=== PATIENT | male | born 1970 | race Caucasian/White ===

== ENCOUNTER 2016-11-07 18:04 | Emergency (ER) | payer OTHER ==
--- NOTE | 2016-11-07 18:57 | PROVIDER DOCUMENTATION ---
HPI-Respiratory General - General Source: patient - History of Present Illness-Resp Quality of Pain: reports: aching Severity in ED: reports: mild Onset/Duration: reports: 3 days ago Timing: reports: still present Cough Quality/Degree: reports: mild, dry cough Current Respiratory Medication Therapy: Initiated see nurses note Associated Symptoms: reports: cough, fever/chills, hurts to breathe, nasal congestion, sore throat Similar Symptoms Previously?: No Recently seen or treated by another doctor?: No <Abigail Breen - Last Filed: 11/07/16 18:53> <Markel Jewell - Last Filed: 11/07/16 19:00> - General Chief Complaint: Sore Throat Stated Complaint: COUGH, SORE THROAT, SOB, PEACE, FEVER Time Seen by Provider: 11/07/16 18:50 Home Medications: Home Medication List Medication Instructions Recorded Confirmed Last Taken Type Albuterol Sulfate [Albuterol 2 gm IH Q4-6H PRN PRN #1 hfa.aer.ad 11/07/16 Unknown Rx Sulfate Hfa] Benzonatate [Tessalon] 200 mg PO TID PRN PRN #30 capsule 11/07/16 Unknown Rx Codeine/Promethazine [Phenergan 10 ml PO TID PRN PRN #120 ml 11/07/16 Unknown Rx with Codeine] - History of Present Illness-Resp Nature of Presenting Problem: 46 year old M presents to the ED with a cc of cough, congestion, chest pain with coughing, fever, sore throat, and body aches with an onset of 3 days ago. PT states that it has gotten worse. PT states that diarrhea has started today. PT states that he was around his grandson on Saturday and he started to not feel good. PT staets that grandson tested positive for strep on Saturday. (Abigail Breen) Review of Systems - Adult - REVIEW OF SYSTEMS - ADULT Constitutional: denies: chills, fever Eyes: reports: no symptoms reported Ears, Nose, Mouth & Throat: reports: throat pain. denies: ear pain Cardiovascular: denies: chest pain, palpitations Respiratory: reports: cough. denies: shortness of breath Gastrointestinal: reports: diarrhea. denies: abdominal pain, nausea, vomiting Genitourinary: reports: no symptoms reported Musculoskeletal: reports: muscle aches. denies: bone pain, muscle weakness Integumentary: denies: skin sores/ulcer, skin thickening Neurological: reports: no symptoms reported Psychiatric: reports: no symptoms reported Endocrine: reports: no symptoms reported Hematologic/Lymphatic: reports: no symptoms reported Allergic/Immunologic: reports: no symptoms reported All Other Systems: Reviewed and Negative <Abigail Breen - Last Filed: 11/07/16 18:53> Past History - Adult - PAST MEDICAL HISTORY-ADULT Review of Records: reports: Nursing Assessment Review, Medications Reviewed Major Childhood Illnesses: reports: denies history - IMMUNIZATION STATUS Childhood Immunizations: See Nurse Assessment Flu Vaccine: See Nurse Assessment - SOCIAL HISTORY Smoking: cigarettes, less than 1 pack/day Provider spent 3-5 mins advising pt. on dangers of tobacco.: Discussed manners to quit use, and f/u contacts for add'l counseling. Substance Use: none/never Alcohol Use Frequency: never <Abigail Breen - Last Filed: 11/07/16 18:53> Physical Exam-General - PHYSICAL EXAM-ADULT Initial Vital Signs Reviewed: Yes - CONSTITUTIONAL General Appearance: appears well, alert, no apparent distress - RESPIRATORY Respiratory: chest non-tender, lungs clear, normal breath sounds - CARDIOVASCULAR Cardiovascular: normal peripheral pulses, regular rate, rhythm, no edema - GASTROINTESTINAL (ABDOMEN) Abdominal Exam: non tender, soft - SKIN Integumentary: normal color, normal turgor, warm/dry - PSYCHIATRIC Psych/Mental Status: normal mood/affect, normal thought content, normal thought process, oriented x 3 <Abigail Breen - Last Filed: 11/07/16 18:53> Departure <Abigail Breen - Last Filed: 11/07/16 18:53> - Departure Time of Disposition Order: 18:59 Certified Medical Emergency: Emergent <Markel Jewell - Last Filed: 11/07/16 19:00> - Departure DIAGNOSIS: URI (upper respiratory infection) Qualifiers: URI type: unspecified viral URI Qualified Code(s): J06.9 - Acute upper respiratory infection, unspecified; B97.89 - Other viral agents as the cause of diseases classified elsewhere Disposition: HOME 01 Condition: Good Additional Instructions: ED Follow Up Instructions: You have been treated by a care provider in the Emergency Department. These instructions are being provided to you so you can have an understanding of how to care for yourself upon discharge. Upon discharge from the Emergency Department, you are responsible for making arrangements for follow-up care by a physician of your choice. Take all prescribed medications as directed. Return to the Emergency Department immediately for any new or worsening symptoms. You may call the Physician Referral phone number at [phone] to obtain a list of Physicians who are taking new patients. Prescriptions: Albuterol Sulfate [Albuterol Sulfate Hfa] 2 gm IH Q4-6H PRN PRN #1 hfa.aer.ad PRN Reason: Wheezing Codeine/Promethazine [Phenergan with Codeine] 10 ml PO TID PRN PRN #120 ml PRN Reason: Cough Benzonatate [Tessalon] 200 mg PO TID PRN PRN #30 capsule PRN Reason: Cough Referrals: Elijah Suero [Primary Care Provider] - Attestation - Scribe Verification/Attestation Scribe:: Abigail Breen Acting as Scribe for:: Markel Jewell Scribe documention review:: This chart was documented by a scribe and accurately reflects the service the provider performed and the decisions made by the provider. <Abigail Breen - Last Filed: 11/07/16 18:53> Physician Attestation
[2016-11-07 19:19] VITALS: BP 128/90
== END 2016-11-07 19:19 | disposition home or self-care (01) ==
LOC: ED 18:04
DX: J06.9 Acute upper respiratory infection, unspecified (principal); R05 Cough; J02.9 Acute pharyngitis, unspecified; R19.7 Diarrhea, unspecified; M79.1 Myalgia; F17.210 Nicotine dependence, cigarettes, uncomplicated; Z71.6 Tobacco abuse counseling; Z79.899 Other long term (current) drug therapy
CPT/HCPCS: 87081; 87430; 87804